=== PATIENT | female | born 1975 | race Caucasian/White ===

== ENCOUNTER 2017-02-20 11:16 | Emergency (ER) | payer MEDICAID ==
[2017-02-20 11:16] VITALS: BMI 39.0
[2017-02-20 11:39] VITALS: RESP 18
--- NOTE | 2017-02-20 11:54 | ED PDOC ---
HPI: Abdomen Time Seen by Provider: 02/20/17 11:43 Chief Complaint (Nursing): Abdominal Pain Chief Complaint (Provider): Abdominal Pain History Per: Patient History/Exam Limitations: no limitations Onset/Duration Of Symptoms: Days (since yesterday) Outside of [place] travel?: Yes Other Location:: [facility] Current Symptoms Are (Timing): Still Present Severity: Moderate Location Of Pain/Discomfort: Other (right-sided flank pain radiating to the front of her abdomen) Associated Symptoms: Fever (at 101.7), Vomiting (non-bloody, non-bilious). denies: Urinary Symptoms (dysuria, hematuria) Last Bowel Movement: Today Additional Complaint(s): Daphne Parr is a 41 year old female, with a past medical history of known back problems, who presents to the emergency department for the evaluation of right-sided flank pain that radiates to the front of her abdomen, that the patient has been experiencing since 02/19/2017. Associated non-bloody, non- bilious vomiting and a fever at 101.7 is currently present. Denies dysuria or hematuria. Of note, patient states she took 800 mg of Motrin late last night; however, it only provided mild relief, and her symptoms persisted, prompting her visit to the emergency department. PMD: Ronny Sanchez Past Medical History Reviewed: Historical Data, Nursing Documentation, Vital Signs Vital Signs: Last Vital Signs Temp 98.9 F 02/20/17 15:33 Pulse 86 02/20/17 18:17 Resp 18 02/20/17 18:17 BP 118/62 02/20/17 18:17 Pulse Ox 99 02/21/17 18:21 - Medical History PMH: Anxiety, Back Problems Denies: Chronic Kidney Disease - Surgical History Surgical History: (x3) Other surgeries: Left Knee Surgery - Family History Family History: States: No Known Family Hx - Social History Current smoker - smoking cessation education provided: No Ex-Smoker (has not smoked in the last 12 months): No Alcohol: None Drugs: Denies - Home Medications Home Medications: Ambulatory Orders Medication Instructions Recorded Ciprofloxacin HCl [Cipro] 500 mg PO BID #14 tab 02/01/15 Oxycodone HCl/Acetaminophen 1 tab PO Q6 PRN #12 tab 02/01/15 [Percocet 325 mg-5 mg] Phenazopyridine HCl [Pyridium] 100 mg PO BID #6 tab 02/01/15 oxyCODONE/Acetaminophen [Percocet 1 ea PO Q6 PRN #14 tab 03/08/15 5/325 mg Tab] Docusate [Colace] 100 mg PO BID #14 cap 12/14/15 Naproxen 1 tab PO Q8 PRN #21 tablet 12/14/15 diaZEpam [Valium] 5 mg PO Q6 PRN #14 tab 12/14/15 oxyCODONE/Acetaminophen [Percocet 1 tab PO Q6 PRN #15 tab 12/14/15 5/325 mg Tab] oxyCODONE/Acetaminophen [Percocet 1 ea PO Q6H PRN #15 tab 07/10/16 5/325 mg Tab] Cephalexin [cephalexin] 500 mg PO TID 14 Days 02/20/17 Naproxen [Naprosyn] 1 tab PO BID PRN #60 tab 02/20/17 traMADol [Ultram] 50 mg PO TID PRN 3 Days 02/20/17 - Allergies Allergies/Adverse Reactions: Allergies Allergy/AdvReac Type Severity Reaction Status Date / Time No Known Allergies Allergy Verified 02/01/15 10:28 Review of Systems ROS Statement: Except As Marked, All Systems Reviewed And Found Negative Constitutional: Positive for: Fever (at 101.7) Gastrointestinal: Positive for: Vomiting (non-bloody, non-bilious), Abdominal Pain (right-sided flank pain radiating to the front of her abdomen) Genitourinary Female: Negative for: Dysuria, Hematuria Physical Exam - Reviewed Nursing Documentation Reviewed: Yes Vital Signs Reviewed: Yes - Physical Exam Appears: Positive for: Non-toxic, No Acute Distress Head Exam: Positive for: ATRAUMATIC, NORMOCEPHALIC Skin: Positive for: Normal Color, Warm, Dry Neck: Positive for: Normal, Painless ROM Cardiovascular/Chest: Positive for: Regular Rate, Rhythm. Negative for: Murmur Respiratory: Positive for: Normal Breath Sounds. Negative for: Respiratory Distress Gastrointestinal/Abdominal: Positive for: Normal Exam, Soft. Negative for: Tenderness Back: Positive for: Normal Inspection, R CVA Tenderness. Negative for: L CVA Tenderness Extremity: Positive for: Normal ROM. Negative for: Tenderness Neurologic/Psych: Positive for: Alert, Oriented - Laboratory Results Result Diagrams: 02/20/17 12:16 02/20/17 12:16 - ECG O2 Sat by Pulse Oximetry: 99 (RA) Pulse Ox Interpretation: Normal Medical Decision Making Medical Decision Makin:43 Initial Impression: pyelonephritis versus possible kidney stones Initial Plan: * CT Abdomen and Pelvis w/ IV Contrast * CBC * CMP * Lipase * Urine * Urinalysis * Urine Drug Screen * Urine Culture * Sodium Chloride 0.9% 1,000 ml IV at 500 mls/hr * Toradol 30 mg IVP * Zofran 4 mg IVP * Reevaluation Scribe Attestation: Documented by Deshawn Vásquez, acting as a scribe for Deja Diaz MD. Provider Scribe Attestation: All medical record entries made by the Scribe were at my direction and personally dictated by me. I have reviewed the chart and agree that the record accurately reflects my personal performance of the history, physical exam, medical decision making, and the department course for this patient. I have also personally directed, reviewed, and agree with the discharge instructions and disposition. Disposition - Clinical Impression Clinical Impression: Pyelonephritis, Ovarian cyst - Disposition Referrals: Ronny Sanchez MD [Primary Care Provider] - 02/23/17 Disposition: Transfer of Care Disposition Time: 15:00 Condition: IMPROVED Prescriptions: Cephalexin [cephalexin] 500 mg PO TID 14 Days Naproxen [Naprosyn] 1 tab PO BID PRN #60 tab PRN Reason: Pain traMADol [Ultram] 50 mg PO TID PRN 3 Days PRN Reason: SEVERE PAIN ONLY Instructions: Acute Pyelonephritis (ED) Forms: [facility] ED School/Work Excuse Print Language: TOGOLESE Patient Signed Over To: Janet Ratliff Handoff Comments: pending CT
[2017-02-20] MEDS ORDERED: Sodium Chloride 0.9% 1,000 ML IV STA (12:00)
[2017-02-20 12:29] LABS: BASO % 0.3 % (0.0-2.0); EOS % 0.2 % (0.0-4.0); HEMATOCRIT 38.2 % (34.0-47.0); LYMPH # 2.1 K/uL (1.0-4.3); LYMPH % 25.3 % (20.0-40.0); MEAN CORPUSCULAR HEMOGLOBIN 29.9 pg (27.0-31.0); MEAN CORPUSCULAR HGB CONC 35.2 g/dL (33.0-37.0); MEAN PLATELET VOLUME 9.3 fl (7.2-11.7); MONO % 12.4 % (0.0-10.0); NEUT % 61.8 % (50.0-75.0); RED CELL DISTRIBUTION WIDTH 13.2 % (11.5-14.5); WHITE BLOOD COUNT 8.2 K/uL (4.8-10.8)
[2017-02-20 12:32] LABS: RBC URINE 54 /hpf (0-3); URINE BACTERIA MOD (<OCC); URINE BILIRUBIN NEGATIVE (NEGATIVE); URINE BLOOD LARGE (NEGATIVE); URINE COLOR AMBER (YELLOW); URINE GLUCOSE (UA) NEG (Normal); URINE KETONE TRACE mg/dL (NEGATIVE); URINE LEUKOCYTE ESTERASE MOD Leu/uL (Negative); URINE PROTEIN 30 mg/dL (NEGATIVE); WBC URINE 96 /hpf (0-5)
[2017-02-20 12:38] LABS: ALKALINE PHOSPHATASE 90 U/L (38-126); ALT/SGPT 29 U/L (9-52); AST/SGOT 31 U/L (14-36); BILIRUBIN,TOTAL 0.6 mg/dl (0.2-1.3); BLOOD UREA NITROGEN 11 mg/dl (7-17); CALCIUM 9.1 mg/dL (8.4-10.2); CARBON DIOXIDE 27 mmol/L (22-30); CHLORIDE 100 mmol/L (98-107); GFR AFRICAN-AMERICAN > 60; GLUCOSE,RANDOM 104 mg/dL (65-105); LIPASE 49 U/L (23-300); POTASSIUM 3.6 MMOL/L (3.6-5.0); SODIUM 135 mmol/l (132-148); TOTAL PROTEIN 7.3 G/DL (6.3-8.2)
[2017-02-20] MEDS ORDERED: Iohexol 300 100 ML IJ ONE (14:14)
[2017-02-20] MEDS ORDERED: Sodium Chloride 0.9% 50 ML IV ONE (14:15)
[2017-02-20] MEDS ORDERED: levoFLOXacin 750 mg in D5W 150 ML BAG IVPB STA (14:58)
--- NOTE | 2017-02-20 15:09 | CT ---
PROCEDURE: CT Abdomen and Pelvis with contrast HISTORY: Right flank pain, fever, r/o pyelo COMPARISON: 07/10/2016 TECHNIQUE: CT scan of the abdomen and pelvis was done after intravenous administration of contrast. Oral contrast was not administered. Coronal and sagittal reformatted images were obtained. Contrast dose: Radiation dose: Total exam DLP = 1018.33 mGy-cm. This CT exam was performed using one or more of the following dose reduction techniques: Automated exposure control, adjustment of the mA and/or kV according to patient size, and/or use of iterative reconstruction technique. FINDINGS: LOWER THORAX: The lung bases are clear. LIVER: The liver is normal in size and there is homogeneous enhancement. There is no intrahepatic biliary ductal dilatation. GALLBLADDER AND BILE DUCTS: There are no calcified gallstones. PANCREAS: The pancreas is normal in size and there is homogeneous enhancement without ductal dilatation or focal mass. SPLEEN: The spleen is normal in size and there is homogeneous enhancement without focal mass. ADRENALS: Both adrenal glands are normal in size without discrete nodule. There are punctate calcifications in the right adrenal gland. KIDNEYS AND URETERS: Both kidneys are normal in size and there is homogeneous enhancement without hydronephrosis or focal mass. There is significant left perinephric fat stranding. The ureters are not dilated. VASCULATURE: Normal in appearance. No aortic aneurysm. BOWEL: The small bowel loops are normal in caliber. The colon is unremarkable. APPENDIX: Not visualized. No inflammatory changes in the right lower quadrant. PERITONEUM: No free fluid. No free air. LYMPH NODES: No enlarged lymph nodes. BLADDER: Unremarkable. REPRODUCTIVE: The uterus is normal in size. There is a stable 4 cm simple cyst in the left ovary. BONES: No acute fracture. OTHER FINDINGS: There is a small fat containing umbilical hernia. IMPRESSION: No evidence of hydronephrosis, nephrolithiasis or obstructive uropathy. Significant left perinephric fat stranding which could be related to recent passage of stone. No CT evidence of pyelonephritis. 4 cm simple cyst in the left ovary. Follow-up pelvic ultrasound in six-month interval is recommended to assess stability/resolution
--- NOTE | 2017-02-20 15:32 | ED PDOC ---
- Laboratory Results Result Diagrams: 02/20/17 12:16 02/20/17 12:16 - ECG O2 Sat by Pulse Oximetry: 99 (RA) Medical Decision Making Medical Decision Makin:00 Patient transferred over to provider by Dr. Short. Pending ER workup, re- assessment, and final disposition. Accession No. : [id number] Patient Name / ID : ABELARDO GAINES / [id number] Exam Date : 02/20/2017 14:27:48 ( Approved ) Study Comment : Sex / Age : F / 41Y Creator : Malka Hawkins MD Dictator : Malka Hawkins MD Division Operations Manager : [employer] Supervisor : Malka Hawkins MD Approver2 : Report Date : 02/20/2017 15:07:09 My Comment : PROCEDURE: CT Abdomen and Pelvis with contrast HISTORY: Right flank pain, fever, r/o pyelo COMPARISON: 07/10/2016 TECHNIQUE: CT scan of the abdomen and pelvis was done after intravenous administration of contrast. Oral contrast was not administered. Coronal and sagittal reformatted images were obtained. Contrast dose: Radiation dose: Total exam DLP = 1018.33 mGy-cm. This CT exam was performed using one or more of the following dose reduction techniques: Automated exposure control, adjustment of the mA and/or kV according to patient size, and/or use of iterative reconstruction technique. FINDINGS: LOWER THORAX: The lung bases are clear. LIVER: The liver is normal in size and there is homogeneous enhancement. There is no intrahepatic biliary ductal dilatation. GALLBLADDER AND BILE DUCTS: There are no calcified gallstones. PANCREAS: The pancreas is normal in size and there is homogeneous enhancement without ductal dilatation or focal mass. SPLEEN: The spleen is normal in size and there is homogeneous enhancement without focal mass. ADRENALS: Both adrenal glands are normal in size without discrete nodule. There are punctate calcifications in the right adrenal gland. KIDNEYS AND URETERS: Both kidneys are normal in size and there is homogeneous enhancement without hydronephrosis or focal mass. There is significant left perinephric fat stranding. The ureters are not dilated. VASCULATURE: Normal in appearance. No aortic aneurysm. BOWEL: The small bowel loops are normal in caliber. The colon is unremarkable. APPENDIX: Not visualized. No inflammatory changes in the right lower quadrant. PERITONEUM: No free fluid. No free air. LYMPH NODES: No enlarged lymph nodes. BLADDER: Unremarkable. REPRODUCTIVE: The uterus is normal in size. There is a stable 4 cm simple cyst in the left ovary. BONES: No acute fracture. OTHER FINDINGS: There is a small fat containing umbilical hernia. IMPRESSION: No evidence of hydronephrosis, nephrolithiasis or obstructive uropathy. Significant left perinephric fat stranding which could be related to recent passage of stone. No CT evidence of pyelonephritis. 4 cm simple cyst in the left ovary. Follow-up pelvic ultrasound in six-month interval is recommended to assess stability/resolution 4p On reeval pt comfortable s/p medications. DW pt findings and plan of care. Rx for antibiotics and pain meds and pt to f/u PMD or clinic. Scribe Attestation: Documented by Deshawn Vásquez, acting as a scribe for Janet Ratliff MD. Provider Scribe Attestation: All medical record entries made by the Scribe were at my direction and personally dictated by me. I have reviewed the chart and agree that the record accurately reflects my personal performance of the history, physical exam, medical decision making, and the department course for this patient. I have also personally directed, reviewed, and agree with the discharge instructions and disposition. Disposition - Clinical Impression Clinical Impression: Pyelonephritis, Ovarian cyst - POA Present On Arrival: None - Disposition Referrals: Ronny Sanchez MD [Primary Care Provider] - 02/23/17 Disposition: Routine/Home Disposition Time: 16:00 Condition: IMPROVED Prescriptions: Cephalexin [cephalexin] 500 mg PO TID 14 Days Naproxen [Naprosyn] 1 tab PO BID PRN #60 tab PRN Reason: Pain traMADol [Ultram] 50 mg PO TID PRN 3 Days PRN Reason: SEVERE PAIN ONLY Instructions: Acute Pyelonephritis (ED) Forms: [facility] ED School/Work Excuse Print Language: MICRONESIAN
[2017-02-20 15:34] VITALS: TEMP 98.9
[2017-02-20] MEDS ORDERED: levoFLOXacin 750 mg in D5W 750 MG/150 ML BAG IVPB ONE (16:05)
[2017-02-20] MEDS ORDERED: cefTRIAXone (Rocephin) 1 gm Inj ONE (16:45)
[2017-02-20 18:19] VITALS: BP 118/62; PULSE 86
[2017-02-21 18:21] VITALS: O2SAT 99
== END 2017-02-20 18:18 | disposition home or self-care (01) ==
LOC: H.ER 11:16
DX: N10 Acute pyelonephritis (principal); N83.202 Unspecified ovarian cyst, left side; R50.9 Fever, unspecified; R11.10 Vomiting, unspecified

== ENCOUNTER 2018-11-25 11:40 | Emergency (ER) | payer MEDICAID ==
[2018-11-25 11:40] VITALS: BMI 39.0
[2018-11-25 11:59] VITALS: TEMP 98.7; O2SAT 99
--- NOTE | 2018-11-25 12:39 | ED PDOC ---
HPI: General Adult Time Seen by Provider: 11/25/18 12:38 Chief Complaint (Nursing): Abdominal Pain Chief Complaint (Provider): back pain, abd pain History Per: Patient Additional Complaint(s): 43-year-old female with history of chronic back pain presents with lower back pain that radiates to abdomen 2 days. Patient denies nausea, vomiting, diarrhea or constipation. She has been taking Tylenol which has provided minimal pain relief. Patient has had urinary hesitancy and urgency with mild dysuria. No associated vaginal discharge. Patient has history of known left ovarian cyst. At this time she denies any concern for STDs and denies any vaginal discharge. Past Medical History Reviewed: Historical Data, Nursing Documentation, Vital Signs Vital Signs: Last Vital Signs Temp 98.7 F 11/25/18 11:57 Pulse 97 H 11/25/18 11:57 Resp 16 11/25/18 11:57 BP 154/81 H 11/25/18 11:57 Pulse Ox 99 11/25/18 11:57 - Medical History PMH: Anxiety, Back Problems - Surgical History Surgical History: (x 3) - Family History Family History: States: No Known Family Hx - Living Arrangements Living Arrangements: With Family - Social History Current smoker - smoking cessation education provided: No Alcohol: None Drugs: Denies - Home Medications Home Medications: Ambulatory Orders Medication Instructions Recorded Ciprofloxacin HCl [Cipro] 500 mg PO BID #14 tab 02/01/15 Oxycodone HCl/Acetaminophen 1 tab PO Q6 PRN #12 tab 02/01/15 [Percocet 325 mg-5 mg] Phenazopyridine HCl [Pyridium] 100 mg PO BID #6 tab 02/01/15 oxyCODONE/Acetaminophen [Percocet 1 ea PO Q6 PRN #14 tab 03/08/15 5/325 mg Tab] Docusate [Colace] 100 mg PO BID #14 cap 12/14/15 Naproxen 1 tab PO Q8 PRN #21 tablet 12/14/15 diaZEpam [Valium] 5 mg PO Q6 PRN #14 tab 12/14/15 oxyCODONE/Acetaminophen [Percocet 1 tab PO Q6 PRN #15 tab 12/14/15 5/325 mg Tab] oxyCODONE/Acetaminophen [Percocet 1 ea PO Q6H PRN #15 tab 07/10/16 5/325 mg Tab] Cephalexin [cephalexin] 500 mg PO TID 14 Days cap 02/20/17 Naproxen [Naprosyn] 1 tab PO BID PRN #60 tab 02/20/17 traMADol [Ultram] 50 mg PO TID PRN 3 Days tab 02/20/17 Ibuprofen [Motrin Tab] 800 mg PO Q8 PRN #20 tab 11/25/18 Nitrofurantoin Macrocrystals 100 mg PO BID #14 cap 11/25/18 [Macrobid] - Allergies Allergies/Adverse Reactions: Allergies Allergy/AdvReac Type Severity Reaction Status Date / Time No Known Allergies Allergy Verified 11/25/18 11:56 Review of Systems ROS Statement: Except As Marked, All Systems Reviewed And Found Negative Constitutional: Negative for: Fever, Chills Cardiovascular: Negative for: Chest Pain Respiratory: Negative for: Cough Gastrointestinal: Positive for: Abdominal Pain Musculoskeletal: Positive for: Back Pain Physical Exam - Reviewed Nursing Documentation Reviewed: Yes Vital Signs Reviewed: Yes - Physical Exam Appears: Positive for: Well, Non-toxic, No Acute Distress Skin: Positive for: Normal Color. Negative for: Rash Eye Exam: Positive for: Normal appearance Cardiovascular/Chest: Positive for: Regular Rate, Rhythm Respiratory: Positive for: Normal Breath Sounds Gastrointestinal/Abdominal: Positive for: Soft, Tenderness (tenderness to right lower quadrant and left lower quadrant with mild distention, no guarding or rebound) Back: Positive for: Vertebral Tenderness (lumbar) Extremity: Positive for: Normal ROM Neurologic/Psych: Positive for: Alert, Oriented - Laboratory Results Result Diagrams: 11/25/18 13:00 11/25/18 13:00 Urine POC: Negative Urine dip results: Positive for: Blood (large), Nitrate (positive). Negative for: Leukocyte Esterase, Ketones, Glucose, Bilirubin, Protein - ECG O2 Sat by Pulse Oximetry: 99 Pulse Ox Interpretation: Normal - Other Rad CT abd and pelvis without contrast X-Ray: Read By Radiologist X-Ray Interpretation: no acute finding Medical Decision Making Medical Decision Makin43 y/o female with back pain and abdominal pain Plan: Urine test Urine dip CBC CMP Lipase IVF CT abd and pelvis without contrast IV toradol PO flexeril Patient is aware of diagnostic testing results, all questions answered. Patient reports improvement to pain after meds given. Patient was given rx for Macrobid and Motrin. She was advised to drink plenty of fluids, rest and follow-up with primary doctor in 2-3 days. Disposition - Clinical Impression Clinical Impression: UTI (urinary tract infection) - Patient ED Disposition Is Patient to be Admitted: No Counseled Patient/Family Regarding: Studies Performed, Diagnosis, Need For F ollowup, Rx Given - Disposition Referrals: Ronny Sanchez MD [Family Provider] - Disposition: Routine/Home Disposition Time: 15:03 Condition: STABLE Additional Instructions: Take prescription meds as directed. Drink plenty of fluids. Follow-up with pr imary doctor in 2-3 days. Prescriptions: Ibuprofen [Motrin Tab] 800 mg PO Q8 PRN #20 tab PRN Reason: Pain, Moderate (4-7) Nitrofurantoin Macrocrystals [Macrobid] 100 mg PO BID #14 cap Instructions: Urinary Tract Infections in Adults Forms: [employer]), [facility] ED School/Work Excuse Results - Lab Results Lab Results: 11/25/18 11/25/18 13:00 13:00 WBC 5.5 RBC 4.97 Hgb 14.6 Hct 43.1 MCV 86.7 MCH 29.3 MCHC 33.8 RDW 12.7 Plt Count 258 MPV 9.8 Neut % (Auto) 47.3 L Lymph % (Auto) 42.3 H [place] % (Auto) 6.5 Eos % (Auto) 3.3 Baso % (Auto) 0.6 Neut # (Auto) 2.6 Lymph # (Auto) 2.3 [place] # (Auto) 0.4 Eos # (Auto) 0.2 Baso # (Auto) 0.0 Sodium 141 Potassium 3.9 Chloride 101 Carbon Dioxide 29 Anion Gap 15 BUN 15 Creatinine 0.6 L Est GFR ( Amer) > 60 Est GFR (Non-Af Amer) > 60 Random Glucose 104 Calcium 9.7 Total Bilirubin 0.3 AST 26 ALT 28 Alkaline Phosphatase 96 Total Protein 7.8 Albumin 4.1 Globulin 3.7 Albumin/Globulin Ratio 1.1 Lipase 74
[2018-11-25] MEDS ORDERED: Sodium Chloride 0.9% 1,000 ML IV STA (13:10)
[2018-11-25 13:42] LABS: BASO % 0.6 % (0.0-2.0); EOS # 0.2 K/uL (0.0-0.7); EOS % 3.3 % (0.0-4.0); HEMOGLOBIN 14.6 g/dL (12.0-16.0); LYMPH # 2.3 K/uL (1.0-4.3); LYMPH % 42.3 % (20.0-40.0); MEAN CELL VOLUME 86.7 fl (81.0-99.0); MEAN CORPUSCULAR HEMOGLOBIN 29.3 pg (27.0-31.0); MEAN CORPUSCULAR HGB CONC 33.8 g/dL (33.0-37.0); MEAN PLATELET VOLUME 9.8 fl (7.2-11.7); MONO # 0.4 K/uL (0.0-0.8); MONO % 6.5 % (0.0-10.0); NEUT # 2.6 K/uL (1.8-7.0); NEUT % 47.3 % (50.0-75.0); NRBC % 0.1 % (0.0-0.0); RBC 4.97 Mil/uL (3.80-5.20); RED CELL DISTRIBUTION WIDTH 12.7 % (11.5-14.5); WHITE BLOOD COUNT 5.5 K/uL (4.8-10.8)
[2018-11-25 13:47] LABS: ALB/GLOB RATIO 1.1 (1.0-2.1); ALBUMIN 4.1 g/dL (3.5-5.0); ALT/SGPT 28 U/L (9-52); AST/SGOT 26 U/L (14-36); BLOOD UREA NITROGEN 15 mg/dl (7-17); CALCIUM 9.7 mg/dL (8.4-10.2); GFR NON-AFRICAN AMERICAN > 60; LIPASE 74 U/L (23-300)
--- NOTE | 2018-11-25 14:54 | CT ---
Date of service: 11/25/2018 PROCEDURE: CT Abdomen and Pelvis without intravenous contrast HISTORY: Lower abdominal pain, back pain. Negative test (concurrent with this examination). COMPARISON: 02/20/2017. CT abdomen and pelvis TECHNIQUE: Unenhanced. Neither IV nor oral contrast administered Radiation dose: Total exam DLP = 892.47 mGy-cm. This CT exam was performed using one or more of the following dose reduction techniques: Automated exposure control, adjustment of the mA and/or kV according to patient size, and/or use of iterative reconstruction technique. FINDINGS: LOWER THORAX: Unremarkable. LIVER: Unremarkable. No gross lesion or ductal dilatation. GALLBLADDER AND BILE DUCTS: Unremarkable. PANCREAS: Unremarkable. No gross lesion or ductal dilatation. SPLEEN: Unremarkable. ADRENALS: Unremarkable. No mass. KIDNEYS AND URETERS: Unremarkable. No hydronephrosis. No solid mass. VASCULATURE: Unremarkable. No aortic aneurysm. No atherosclerotic calcification or mural plaque present. BOWEL: Unremarkable. No obstruction. No gross mural thickening. APPENDIX: No abnormalities to suggest acute appendicitis. No right lower quadrant inflammatory processes identified. PERITONEUM: Unremarkable. No free fluid. No free air. LYMPH NODES: Unremarkable. No enlarged lymph nodes. BLADDER: Unremarkable. REPRODUCTIVE: Unremarkable. BONES: No acute fracture. OTHER FINDINGS: None. IMPRESSION: No significant or acute findings to account for/ related to the clinical presentation. Other than nonvisualization of previously identified 4 cm left adnexal cyst there is no interval change.
[2018-11-25 16:02] VITALS: BP 142/77; PULSE 70; RESP 18
== END 2018-11-25 16:16 | disposition home or self-care (01) ==
LOC: H.ER 11:40
DX: N39.0 Urinary tract infection, site not specified (principal)
CPT/HCPCS: 74176; 80053; 81025; 83690; 85025; 87086; 87181; 96374; 99284; J1885; J7030